=== PATIENT | male | born 1935 | race Hispanic/Latino ===

== ENCOUNTER 2018-06-27 08:31 | Day surgery (SDC) | payer MEDICARE ==
[2018-06-27] VITALS (11 sets, daily range): BP systolic 99–181; BP diastolic 37–74
[~2018-06-27] VITALS: Ht 162.6 cm; Wt 73.9 kg
[~2018-06-27 08:31] MED LIST: AMIO200T5 PO; ASPI-555 PO; CARV12.511 PO; CLOP75TA32 PO; CYCL5TAB PO; DUTA0.5C17 PO; ERGO500014 PO; FURO20TA4 PO; GABA-529 PO; LINA145C PO; LISI-613 PO; NITRO SL; RANO500T3 PO; SODIUM CHLORIDE 0.9% 1000ML 1,000 ML IV ONE; TAMS0.4C32 PO
[2018-06-27] MEDS ORDERED: IOHEXOL-350 50ML VIAL IV ONE (09:39)
[2018-06-27] MEDS ORDERED: INDOMETHACIN 50 MG SUPP.RECT RC SCH (10:00)
== END 2018-06-27 12:40 | disposition home or self-care (01) ==
LOC: DAH 08:31 → ENDO 08:31
PROVIDERS: ATTEND Internal Medicine
DX: K80.50 Calculus of bile duct without cholangitis or cholecystitis without obstruction (principal); K83.8 Other specified diseases of biliary tract; I10 Essential (primary) hypertension; M10.9 Gout, unspecified; E78.5 Hyperlipidemia, unspecified; M19.90 Unspecified osteoarthritis, unspecified site; Z85.05 Personal history of malignant neoplasm of liver; Z95.1 Presence of aortocoronary bypass graft; Z98.890 Other specified postprocedural states; Z95.5 Presence of coronary angioplasty implant and graft; Z79.899 Other long term (current) drug therapy; I25.10 Atherosclerotic heart disease of native coronary artery without angina pectoris; Z88.8 Allergy status to other drugs, medicaments and biological substances
CPT/HCPCS: 43262; 43264; 74330; A4606; C1769; J7030; Q9967